=== PATIENT | female | born 1975 | race Caucasian/White ===

== ENCOUNTER 2021-06-16 12:27 | Emergency (ER) | payer OTHER, MEDICAID ==
[~2021-06-16] VITALS: Ht 162.6 cm; Wt 163.3 kg
[2021-06-16 15:25] VITALS: BP 0/0
--- NOTE | 2021-06-17 09:47 | EKG ---
[place] [address] ELECTROCARDIOGRAM REPORT Name: LEXUS SKELTON Room: [facility]#: [id number] Admission: 06/16/21 Attend Phys: Discharge: 06/16/21 Date of : 77 Date of Service: 06/16/21 1230 Report #: [id number] THIS REPORT FOR: //name// [facility] ED Test Date: 2021-06-16 Test Time: 12:30:51 Pat Name: LEXUS SKELTON Department: Room: Gender: F [employer] Blower: MEAGHAN : 1975 Requested By: Reji Padilla Order Number: [id number] Priyanka MD: Rey Lakhani Measurements Intervals [place] Rate: 104 P: 57 DE: 145 QRS: -53 QRSD: 160 T: 1 QT: 360 QTc: 474 Interpretive Statements Sinus tachycardia RBBB and LAFB Baseline wander in lead(s) II,III,aVF No previous ECG available for comparison Electronically Signed On 06-17-2021 9:47:42 CDT by Rey Lakhani [email or web address] <ELECTRONICALLY SIGNED> By: Rey Lakhani MD, [facility] 06/17/21 0947 1230 1230 Rey Lakhani MD, [facility] /EPI
== END 2021-06-16 15:25 ==
LOC: M.ERS 12:27
DX: Z20.822 Contact with and (suspected) exposure to COVID-19; E11.9 Type 2 diabetes mellitus without complications